=== PATIENT | male | born 1950 | race Hispanic/Latino ===

== ENCOUNTER 2018-04-14 08:53 | Emergency (ER) | payer MEDICARE, OTHER ==
[~2018-04-14] VITALS: Ht 185.4 cm; Wt 106.8 kg
[2018-04-14] MEDS ORDERED: CEFTRIAXONE SOD 1 GM VIAL IM ONE (09:45)
[2018-04-14 10:04] VITALS: BP 178/97
== END 2018-04-14 10:13 | disposition home or self-care (01) ==
LOC: FSED 08:53
DX: R50.9 Fever, unspecified (principal); R30.0 Dysuria; N30.90 Cystitis, unspecified without hematuria; I10 Essential (primary) hypertension; I50.9 Heart failure, unspecified; K21.9 Gastro-esophageal reflux disease without esophagitis
CPT/HCPCS: 81003; 87086; 87186; 96372; 99283; J0696